=== PATIENT | female | born 1990 | race Caucasian/White ===

== ENCOUNTER 2016-11-14 02:37 | Emergency (ER) | payer MEDICAID ==
[2016-11-14] MEDS ORDERED: ALPRAZOLAM1 M3 PO (02:47)
[2016-11-14] MEDS ORDERED: TRAMADOL HCL50 M2 PO (04:02)
== END 2016-11-14 04:17 ==
LOC: EDMED 02:37
DX: M54.5 Low back pain (principal); F41.9 Anxiety disorder, unspecified; Z88.0 Allergy status to penicillin